=== PATIENT | female | born 2000 | race Caucasian/White ===

== ENCOUNTER 2020-10-03 22:44 | Emergency (ER) | payer OTHER ==
[~2020-10-03] VITALS: Ht 167.6 cm; Wt 63.0 kg
[2020-10-03] MEDS ORDERED: ONDANSETRON HCL 4MG/2ML INJ IV STA (23:32)
[2020-10-03] MEDS ORDERED: MORPHINE SULFATE 4 MG/ML CPJ (NOT FOR IM USE) IV STA (23:32)
[2020-10-03] MEDS ORDERED: SODIUM CHLORIDE 0.9% 1,000 ML IV ONE (23:45)
[2020-10-04] MEDS ORDERED: KETAMINE HCL 50 MG/ML 10ML IV ONE (00:45)
[2020-10-04] MEDS ORDERED: PROPOFOL 200MG/20ML VIAL IV ONE (00:45)
[2020-10-04] MEDS ORDERED: MORPHINE SULFATE 4 MG/ML CPJ (NOT FOR IM USE) IV ONE (00:45)
[2020-10-04] MEDS ORDERED: T3 PO (01:54)
[2020-10-04] MEDS ORDERED: IBUP-2029 MT (01:58)
[2020-10-04 03:15] VITALS: BP 121/69
== END 2020-10-04 03:20 | disposition home or self-care (01) ==
LOC: ER 22:44
DX: S52.202A Unspecified fracture of shaft of left ulna, initial encounter for closed fracture (principal); Z88.0 Allergy status to penicillin; X58.XXXA Exposure to other specified factors, initial encounter; Y93.89 Activity, other specified; Y92.89 Other specified places as the place of occurrence of the external cause; Y99.8 Other external cause status
CPT/HCPCS: 25605; 73110; 96361; 96374; 96375; 96376; 99152; 99285; J2270; J2405; J2704; J3490; J7030; A4565